=== PATIENT | female | born 1950 | race Caucasian/White ===

== ENCOUNTER 2016-08-23 09:27 | Day surgery (SDC) | payer OTHER ==
[2016-08-23 09:58] LABS: MEAN CELL VOLUME 97.8 FL (80.0-100.0); MEAN CORPUSCULAR HEMOGLOBIN 32.8 PG (27.0-34.0); MEAN CORPUSCULAR HGB CONC 33.6 % (32.0-36.0); PLATELET COUNT 205 TH/MM3 (150-450); RED BLOOD COUNT 3.99 MIL/MM3 (4.00-5.30); RED CELL DISTRIBUTION WIDTH 16.1 % (11.6-17.2); REVIEW FLAG FINAL; WHITE BLOOD COUNT 12.8 TH/MM3 (4.0-11.0)
[2016-08-23 10:08] LABS: INTERNATIONAL NORMALIZED RATIO 1.3 RATIO; PROTHROMBIN TIME - PATIENT 14.6 SEC (9.8-11.6)
[2016-08-23 10:38] VITALS: BP 144/72; PULSE 102; RESP 20; TEMP 97; O2SAT 97
[2016-08-23 12:15] VITALS: BP 138/70; PULSE 79; RESP 16; TEMP 97.8; O2SAT 96
[2016-08-23 12:30] VITALS: BP 142/66; PULSE 87; RESP 16; O2SAT 96
--- NOTE | 2016-08-23 12:38 | RADRPT ---
EXAM DATE/TIME: 08/23/2016 10:48 [place] COMPARISON: No previous studies available for comparison. EXTERNAL COMPARISON: [facility], PET/CT TUMOR, May 10 2016. [facility], CT ABDOMEN AND PELVIS, Ja 2016. [facility], CT ABDOMEN AND PELVIS, July 18, 2015. INDICATIONS : Ascites. Vancomycin within 2 hrs of procedure, Ancef (or alternative) within 1 hr of procedure start. MEDICAL HISTORY : Hypertension. Myocardial infarction. Carcinoma, breast. Carcinoma, ovarian. Anxiety. Depression. Tomás nary artery disease. SURGICAL HISTORY : Cholecystectomy Mastectomy, right. Back surgery. ENCOUNTER: Initial ACUITY: > 1 yr PAIN SCORE: 0/10 LOCATION: Left lower quadrant FLUID: Total volume of 4700 cc of clear, yellow fluid was removed. Fluid was discarded. Paracentesis was therapeutic only. Post procedure scanning reveals no hematoma or other complication. TECHNIQUE: 1. Ultrasound guidance for abdominal paracentesis. 2. Paracentesis. The risks, benefits, and alternatives to ultrasound guided paracentesis were explained to the patient in detail including the risk of bleeding and infection. Written and verbal informed consent was obt ained. With the patient on the ultrasound table, ultrasound imaging was used to select the most appropriate approach for paracentesis. Overlying skin was prepped and draped in the usual sterile fashion and wi th a local anesthetic, a dermatotomy was made with an 11 blade scalpel. A 6 [employer] [id number] ca theter was introduced into the peritoneal cavity and fluid was collected. The patient tolerated the procedure well and left the ultrasound suite in stable condition. CONCLUSION: Uncomplicated ultrasound guided paracentesis. Neftaly Claros MD on August 23, 2016 at 12:35 Board Certified Radiologist. This report was verified electronically.
[2016-08-23 12:45] VITALS: BP 130/67; PULSE 76; RESP 16; O2SAT 96
== END 2016-08-23 13:30 | disposition home or self-care (01) ==
LOC: HRIP 09:27 → HRAD 09:27
PROVIDERS: ATTEND Family Medicine Hospice and Palliative Medicine
DX: R18.8 Other ascites (principal); I25.10 Atherosclerotic heart disease of native coronary artery without angina pectoris; I10 Essential (primary) hypertension; I25.2 Old myocardial infarction; F41.9 Anxiety disorder, unspecified; F32.9 Major depressive disorder, single episode, unspecified; Z85.3 Personal history of malignant neoplasm of breast; Z85.43 Personal history of malignant neoplasm of ovary
CPT/HCPCS: 36415; 49083; 85027; 85610; C1729